=== PATIENT | female | born 1970 | race Caucasian/White ===

== ENCOUNTER → 2023-12-11 12:56 | Outpatient (BNVA) | payer OTHER, SELFPAY | PROVIDERS: Visit Provider Podiatrist Foot & Ankle Surgery | DX: G57.62 Lesion of plantar nerve, left lower limb; M21.70 Unequal limb length (acquired), unspecified site; M20.42 Other hammer toe(s) (acquired), left foot | CPT/HCPCS: 73630 ==

== ENCOUNTER 2024-01-08 12:26 | Outpatient (CLI) | payer OTHER, SELFPAY ==
--- NOTE | 2024-01-08 12:45 | US_ITS ---
WS: [id number] ULTRASOUND SOFT TISSUES LEFT foot HISTORY: rule out mortons neuroma COMPARISON: None available. TECHNIQUE: 2-D and color Doppler imaging is submitted. No mass or bursitis is noted between the metatarsal heads. Metatarsals are not labeled individually o n this examination. US/US soft tissue/extremity [id number] IMPRESSION: Limited but negative ultrasound LEFT foot between the metatarsal heads.
== END 2024-01-08 12:27 | disposition home or self-care (01) ==
LOC: RAD 12:30
PROVIDERS: PCP Family Medicine; Visit Provider Podiatrist Foot & Ankle Surgery
DX: M79.673 Pain in unspecified foot (principal)
CPT/HCPCS: 76882